=== PATIENT | female | born 1980 | race Asian ===

== ENCOUNTER 2019-02-03 14:01 | Emergency (ER) | payer MEDICAID ==
[~2019-02-03] VITALS: Ht 147.3 cm; Wt 41.7 kg
[2019-02-03 14:16] VITALS: Ht 147.3 cm; Wt 41.7 kg
[2019-02-03 15:27] LABS: BASOPHIL % 0.4 % (0-2); PLATELET COUNT 200 x10^3mcL (130-400); RED CELL DISTRIBUTION WIDTH 12.7 % (11.5-14.5)
[2019-02-03 15:56] LABS: CALCIUM 9.8 mg/dL (8.5-10.1); CARBON DIOXIDE 27.7 mmol/L (21-32); CHLORIDE SERUM 97 mmol/L (98-107); CREATININE SERUM 0.7 mg/dL (0.6-1.0); GFR1 > 60 mL/min; GLUCOSE SERUM 132 mg/dL (74-106); SODIUM SERUM 137 mmol/L (136-145)
[2019-02-03 16:00] LABS: microscopic required? YES; urine erythrocyte NEGATIVE (NEGATIVE)
[2019-02-03 16:01] LABS: ALBUMIN 4.6 g/dL (3.4-5.0); ALKALINE PHOSPHATASE 65 U/L (46-116); ALT/SGPT 48 U/L (14-59); AST/SGOT 41 U/L (15-37); BILIRUBIN TOTAL 0.69 mg/dL (0.20-1.00); LIPASE 89 IU/L (73-393)
[2019-02-03 16:02] LABS: TOTAL PROTEIN, SERUM 8.9 g/dL (6.4-8.2)
[2019-02-03 17:58] VITALS: BP 101/64
== END 2019-02-03 18:19 | disposition home or self-care (01) ==
LOC: ED 14:01
PROVIDERS: Emergency Medicine
DX: F12.188 Cannabis abuse with other cannabis-induced disorder (principal); N83.201 Unspecified ovarian cyst, right side
CPT/HCPCS: J1630; J2060; J3010; J3490; J7030